=== PATIENT | male | born 1970 | race Hispanic/Latino ===

== ENCOUNTER → 2020-07-08 | Outpatient (CLI) | payer OTHER ==
--- NOTE | 2020-07-08 12:28 | Diagnostic Imaging Report ---
EXAM: US ABDOMEN COMPLETE DATE: 07/08/2020 10:25 AM INDICATION: Bloating COMPARISON: None TECHNIQUE: Transverse and longitudinal minor scale and color doppler sonographic images of the upper abdomen were obtained. FINDINGS: LIVER 10.9 cm in the right midclavicular line. Normal echogenicity of the liver with normal contour, no masses. SPLEEN 9.0 cm in maximum diameter. Normal echogenicity, no masses. GALLBLADDER No gallbladder wall thickening, distension, stone, or pericholecystic fluid. Negative reported sonographic Frye's sign. The gallbladder wall measures 2mm BILE DUCTS No intra nor extra-hepatic biliary dilation. Common bile duct measures 2mm PANCREAS: Visualized portions are normal. RIGHT KIDNEY: 8.6 cm Echogenicity: Normal Collecting System: No hydronephrosis Stones: None Cyst/Mass: None LEFT KIDNEY: 10.4 cm Echogenicity: Normal Collecting System: No hydronephrosis Stones: None Cyst/Mass: None VESSELS: Aorta: Visualized portions are within normal size limits Inferior Vena Cava: Visualized portions are normal Main Portal Vein: 0.7 cm, normal size with hepatopetal flow. FREE FLUID: None IMPRESSION: Unremarkable abdominal ultrasound. Signed by: Yesenia Pressley MD on 07/08/2020 12:25 PM
== END ==
LOC: US 09:55
PROVIDERS: ATTEND Internal Medicine Gastroenterology
DX: R14.0 Abdominal distension (gaseous) (principal); R12 Heartburn; E80.6 Other disorders of bilirubin metabolism
CPT/HCPCS: 76700